=== PATIENT | female | born 2000 | race Hispanic/Latino ===

== ENCOUNTER 2019-04-17 13:23 | Outpatient (CLI) | payer OTHER ==
--- NOTE | 2019-04-17 13:54 | ULT ---
LIMITED LEFT BREAST ULTRASOUND: DATE: 04/17/2019. PROVIDED CLINICAL HISTORY: Left breast lump. FINDINGS: Limited sonographic interrogation is performed of the left breast in the region of palpable concern. The sonographic appearance of the breast parenchyma in this region is normal. IMPRESSION: No sonographic abnormality is evident in the region of palpable concern. Negative imaging findings s hould not preclude further evaluation of a clinically suspicious area. The patient is referred back to her clinician. POS: OFF
== END 2019-04-17 13:24 | disposition home or self-care (01) ==
LOC: BICULT 13:23
PROVIDERS: ATTEND Nurse Practitioner Family
DX: N63.20 Unspecified lump in the left breast, unspecified quadrant (principal)